=== PATIENT | female | born 1985 | race Two or more races ===

== ENCOUNTER 2022-02-01 21:25 | Emergency (ER) | payer OTHER ==
[~2022-02-01] VITALS: Ht 149.9 cm; Wt 134.0 kg
[2022-02-01 22:57] LABS: Basophils # (auto) 0.1 10 ^3/uL (0-0.2); Basophils % (auto) 0.7 % (0.0-2.0); Eosinophils # (auto) 0 10 ^3/uL (0-0.8); Hemoglobin 13.2 g/dL (12.2-16.2); Lymphocytes # (auto) 1.2 10 ^3/uL (0.4-5.4); Lymphocytes % (auto) 17.5 % (10.0-50.0); Mean Corpuscular Hemoglobin 31.4 pg (28.0-32.0); Mean Corpuscular Hgb Conc. 33.1 g/dL (32.0-36.0); Mean Corpuscular Volume 94.8 fL (80.0-100.0); Monocytes # (auto) 0.4 10 ^3/uL (0-1.3); Monocytes % (auto) 5.7 % (0.0-12.0); Neutrophils # (auto) 5.3 10 ^3/uL (1.6-8.6); Neutrophils % (auto) 76.1 % (37.0-80.0); Nucleated Red Blood Cells % 0.1 %; Red Blood Cells 4.22 10^6/uL (4.0-5.20); Red Cell Distribution Width 13.3 % (11.8-14.3); White Blood Cell 6.9 10^3/uL (4.4-10.8)
[2022-02-01 23:22] LABS: Albumin 4.5 g/dL (3.4-5.0); BUN/Creatinine Ratio 8.8; Calcium 8.8 mg/dL (8.5-10.1); Potassium 3.4 mmol/L (3.5-5.1)
[2022-02-01 23:25] LABS: Bilirubin, Total 0.7 mg/dL (0.2-1.0); Total Protein 7.9 g/dL (6.4-8.2)
[2022-02-02 02:51] VITALS: BP 153/90
[2022-02-02] MEDS ORDERED: ALPR0.5T PO (02:51)
[2022-02-02] MEDS ORDERED: ALPRAZolam 0.5 MG TAB PO ONE (03:00)
== END 2022-02-02 02:59 | disposition home or self-care (01) ==
LOC: ER 21:26
DX: R07.89 Other chest pain (principal)
CPT/HCPCS: 36415; 71045; 80053; 83880; 84484; 85025; 93005